=== PATIENT | male | born 1955 | race Asian ===

== ENCOUNTER 2018-04-08 05:20 | Day surgery (SDC) | payer OTHER ==
[~2018-04-08] VITALS: Ht 170.2 cm; Wt 84.5 kg
[~2018-04-08 05:20] MED LIST: ASPI81TA42 PO; ATOR40TA28 PO; EZET10 PO; FLUT16H NASAL; LOSA50TA37 PO; METF500T6 PO; METO25XL PO
[2018-04-08] MEDS ORDERED: MIDAZOLAM HCL 2 MG/2 ML VIAL IVP ONE (05:21)
[2018-04-08] MEDS ORDERED: LIDOCAINE HCL/PF 1% 2 ML VIAL IM ONE (05:21)
[2018-04-08] MEDS ORDERED: HYALURONATE SOD/CHONDROITIN SOD 0.5 ML VIAL IO ONE (05:21)
[2018-04-08] MEDS ORDERED: TETRACAINE HCL VISCOUS 0.5% 5 ML OPHTHALMIC SOLUTION OD ONE (05:21)
[2018-04-08] MEDS ORDERED: POVIDONE-IODINE 10% 15 ML SOLUTION UD TP ONE (05:21)
[2018-04-08] MEDS ORDERED: HYALURONATE SODIUM 12 MG/ML 0.8 ML SYRINGE IO ONE (05:21)
[2018-04-08] MEDS ORDERED: FentaNYL CITRATE-PF 100 MCG/2 ML VIAL IVP ONE (05:21)
[2018-04-08] MEDS ORDERED: DEXAMETHASONE SOD PHOS 4 MG/ML VIAL IVP ONE (05:21)
[2018-04-08] MEDS ORDERED: PHENYLEPHRINE HCL 2.5% 2 ML OPHTHALMIC SOLUTION ONE (05:45)
[2018-04-08] MEDS ORDERED: DICLOFENAC SODIUM 0.1% 2.5 ML OPHTHALMIC SOLUTION ONE (05:45)
[2018-04-08] MEDS ORDERED: MOXIFLOXACIN HCL 0.5% 3 ML OPHTHALMIC SOLUTION ONE (05:45)
[2018-04-08] MEDS ORDERED: RINGERS SOLUTION,LACTATED 500 ML IV ONE ×2 (05:45→06:30)
[2018-04-08] MEDS ORDERED: TROPICAMIDE 1% 2 ML OPHTHALMIC SOLUTION ONE (05:45)
[2018-04-08 06:22] LABS: GLUCOMETER DEV NAME(LOC) SDS 5; GLUCOSE,POINT OF CARE 105 MG/DL (70-110)
[2018-04-08] MEDS: PHENYLEPHRINE HCL 2.5% 2 ML OPHTHALMIC SOLUTION OD SCH ×2 (06:23→06:29)
[2018-04-08] MEDS: TROPICAMIDE 1% 2 ML OPHTHALMIC SOLUTION OD SCH ×2 (06:23→06:29)
[2018-04-08] MEDS ORDERED: 0.9% SODIUM CHLORIDE 10 ML SYRINGE IVP PRN (06:30)
[2018-04-08] MEDS ORDERED: MOXIFLOXACIN HCL 0.5% 3 ML OPHTHALMIC SOLUTION OD ONE (06:30)
[2018-04-08] MEDS ORDERED: DICLOFENAC SODIUM 0.1% 2.5 ML OPHTHALMIC SOLUTION OD ONE (06:30)
== END 2018-04-08 09:50 | disposition home or self-care (01) ==
LOC: SURGERY 05:20
PROVIDERS: ATTEND Specialist
DX: E11.36 Type 2 diabetes mellitus with diabetic cataract (principal); H25.011 Cortical age-related cataract, right eye; E78.00 Pure hypercholesterolemia, unspecified; I10 Essential (primary) hypertension; E66.3 Overweight; J45.998 Other asthma; J44.9 Chronic obstructive pulmonary disease, unspecified; Z87.891 Personal history of nicotine dependence; Z90.49 Acquired absence of other specified parts of digestive tract; Z79.84 Long term (current) use of oral hypoglycemic drugs; Z79.82 Long term (current) use of aspirin; Z68.29 Body mass index [BMI] 29.0-29.9, adult; Z79.899 Other long term (current) drug therapy; Z98.890 Other specified postprocedural states
CPT/HCPCS: 65785; 66984; 82962; 93005; C1780; J1100; J2250; J3010; J3490 ×2; J7120

== ENCOUNTER → 2018-06-10 | Day surgery (SDC) | payer OTHER ==
[~2018-06-10] VITALS: Ht 167.6 cm; Wt 85.0 kg
[~2018-06-10] MED LIST changes: +0.9% SODIUM CHLORIDE 10 ML SYRINGE IVP PRN; +DEXAMETHASONE SOD PHOS 4 MG/ML VIAL IVP ONE; +DICLOFENAC SODIUM 0.1% 2.5 ML OPHTHALMIC SOLUTION ONE; +DICLOFENAC SODIUM 0.1% 2.5 ML OPHTHALMIC SOLUTION OS ONE; +HYALURONATE SOD/CHONDROITIN SOD 0.5 ML VIAL IO ONE; +HYALURONATE SODIUM 12 MG/ML 0.8 ML SYRINGE IO ONE; +LIDOCAINE HCL/PF 1% 2 ML VIAL IM ONE; +MOXIFLOXACIN HCL 0.5% 3 ML OPHTHALMIC SOLUTION ONE; +MOXIFLOXACIN HCL 0.5% 3 ML OPHTHALMIC SOLUTION OS ONE; +PHENYLEPHRINE HCL 2.5% 2 ML OPHTHALMIC SOLUTION ONE; +POVIDONE-IODINE 10% 15 ML SOLUTION UD TP ONE; +RINGERS SOLUTION,LACTATED 500 ML IV ONE; +TETRACAINE HCL VISCOUS 0.5% 0.6 ML OPHTHALMIC SOLUTION OS ONE; +TROPICAMIDE 1% 2 ML OPHTHALMIC SOLUTION ONE
[2018-06-10 08:54] LABS: GLUCOMETER DEV NAME(LOC) SDS 5; GLUCOSE,POINT OF CARE 101 MG/DL (70-110)
[2018-06-10] MEDS: PHENYLEPHRINE HCL 2.5% 2 ML OPHTHALMIC SOLUTION OS SCH ×2 (08:56→09:03)
[2018-06-10] MEDS: TROPICAMIDE 1% 2 ML OPHTHALMIC SOLUTION OS SCH ×2 (08:56→09:03)
== END | disposition home or self-care (01) ==
LOC: SURGERY 07:51
PROVIDERS: ATTEND Specialist
DX: E11.36 Type 2 diabetes mellitus with diabetic cataract (principal); H25.012 Cortical age-related cataract, left eye; I10 Essential (primary) hypertension; E66.3 Overweight; J44.9 Chronic obstructive pulmonary disease, unspecified; E78.00 Pure hypercholesterolemia, unspecified; Z98.41 Cataract extraction status, right eye; Z68.30 Body mass index [BMI] 30.0-30.9, adult; Z87.891 Personal history of nicotine dependence; Z90.49 Acquired absence of other specified parts of digestive tract; Z79.82 Long term (current) use of aspirin; Z79.84 Long term (current) use of oral hypoglycemic drugs; Z79.899 Other long term (current) drug therapy; Z98.890 Other specified postprocedural states
CPT/HCPCS: 65785; 66984; 82962; 93005; C1780; J1100; J3490 ×2; J7120

== ENCOUNTER → 2020-05-15 | Outpatient (CLI) | payer OTHER ==
[~2020-05-15] MED LIST changes: -0.9% SODIUM CHLORIDE 10 ML SYRINGE IVP PRN; +ASPI81TA40 PO; -ASPI81TA42 PO; +CLOP75TA3 PO; -DEXAMETHASONE SOD PHOS 4 MG/ML VIAL IVP ONE; -DICLOFENAC SODIUM 0.1% 2.5 ML OPHTHALMIC SOLUTION ONE; -DICLOFENAC SODIUM 0.1% 2.5 ML OPHTHALMIC SOLUTION OS ONE; -EZET10 PO; -HYALURONATE SOD/CHONDROITIN SOD 0.5 ML VIAL IO ONE; -HYALURONATE SODIUM 12 MG/ML 0.8 ML SYRINGE IO ONE; -LIDOCAINE HCL/PF 1% 2 ML VIAL IM ONE; +LORA10TA7 PO; +METF-960 PO; -METF500T6 PO; +METO25 PO; -METO25XL PO; -MOXIFLOXACIN HCL 0.5% 3 ML OPHTHALMIC SOLUTION ONE; -MOXIFLOXACIN HCL 0.5% 3 ML OPHTHALMIC SOLUTION OS ONE; +OMEP20 PO; -PHENYLEPHRINE HCL 2.5% 2 ML OPHTHALMIC SOLUTION ONE; -POVIDONE-IODINE 10% 15 ML SOLUTION UD TP ONE; +RANO500T3 PO; -RINGERS SOLUTION,LACTATED 500 ML IV ONE; -TETRACAINE HCL VISCOUS 0.5% 0.6 ML OPHTHALMIC SOLUTION OS ONE; -TROPICAMIDE 1% 2 ML OPHTHALMIC SOLUTION ONE
== END | disposition home or self-care (01) ==
LOC: RADPV 11:04
PROVIDERS: ATTEND Internal Medicine Nephrology
DX: N28.1 Cyst of kidney, acquired (principal); N18.3 Chronic kidney disease, stage 3 (moderate)
CPT/HCPCS: 76770